=== PATIENT | male | born 1995 | race Caucasian/White ===

== ENCOUNTER 2017-10-02 09:06 | Emergency (ER) | payer OTHER ==
[~2017-10-02] VITALS: Ht 180.3 cm; Wt 109.6 kg
[~2017-10-02 09:06] MED LIST: EXFORGE 10/31 TABLET; FLEXERIL10 MG PO; NAPROSYN500 MG PO
[2017-10-02 09:46] LABS: HEMATOCRIT 45.8 % (38.0-50.0); HEMOGLOBIN 16.1 G/DL (12.5-16.6); MCH 30.3 PG (29.0-34.0); MCHC 35.2 G/DL (30.0-36.0); MCV 86.3 FL (86-99); PLATELET COUNT 281 K/uL (156-360); RBC DIS.WIDTH-CV 12.2 % (11.8-14.6); RBC DIS.WIDTH-SD 38.5 % (39-53); RED BLOOD COUNT 5.31 M/uL (4.00-5.50); WHITE BLOOD COUNT 10.1 K/uL (4.1-10.2)
[2017-10-02 09:54] LABS: ALBUMIN 4.4 g/dL (3.2-4.8)
[2017-10-02 09:55] LABS: CHLORIDE 106 mEq/L (99-109); SODIUM 137 mEq/L (136-147)
[2017-10-02 09:57] LABS: GLUCOSE 99 mg/dL (70-99); TOTAL PROTEIN 7.9 g/dL (6.4-8.3)
[2017-10-02 09:59] LABS: TOTAL BILIRUBIN 0.6 mg/dL (0.0-1.0)
[2017-10-02 10:00] LABS: ALKALINE PHOSPHATASE 84 IU/L (3-129); CREATININE 0.9 mg/dL (0.6-1.3); GFR ESTIMATE (CALCULATED) > 59 mL/min/ (58.99-99999)
[2017-10-02 10:02] LABS: AST (GOT) 24 IU/L (2-34); UREA NITROGEN (BUN) 12 mg/dL (9-23)
[2017-10-02 10:03] LABS: ALT (GPT) 50 IU/L (3-49)
[2017-10-02 10:07] LABS: TROP-I INTERPRETATION NEGATIVE; TROPONIN-I < 0.01 ng/mL (0.0-0.30)
[2017-10-02] MEDS ORDERED: BENTYL10 MG PO (11:40)
[2017-10-02] MEDS ORDERED: ZOFRAN4 MG PO (11:40)
[2017-10-02 13:13] LABS: TROP-I INTERPRETATION NEGATIVE; TROPONIN-I < 0.01 ng/mL (0.0-0.30)
[2017-10-02 13:31] VITALS: BP 134/71
== END 2017-10-02 13:32 | disposition home or self-care (01) ==
LOC: EME 09:06
PROVIDERS: Nurse Practitioner Family
DX: R10.13 Epigastric pain (principal); R11.2 Nausea with vomiting, unspecified; K21.9 Gastro-esophageal reflux disease without esophagitis; I10 Essential (primary) hypertension; F12.90 Cannabis use, unspecified, uncomplicated; F17.200 Nicotine dependence, unspecified, uncomplicated
CPT/HCPCS: 74177; 80053; 84484; 85027; 93005; 99281; 99285; J2405; J7030

== ENCOUNTER → 2017-11-07 | Outpatient (CLI) | payer OTHER ==
[~2017-11-07] VITALS: Ht 180.3 cm; Wt 108.9 kg
[~2017-11-07] MED LIST changes: +BENTYL10 MG PO; +OMEPRAZOLE40 M1 PO; +ZOFRAN4 MG PO
== END | disposition home or self-care (01) ==
LOC: AMB 08:10
PROC: 0DB68ZX Excision of Stomach, Via Natural or Artificial Opening Endoscopic, Diagnostic (ICD-10-PCS; principal; 2017-11-07)
DX: K29.70 Gastritis, unspecified, without bleeding (principal); E78.5 Hyperlipidemia, unspecified; I10 Essential (primary) hypertension; Z82.49 Family history of ischemic heart disease and other diseases of the circulatory system; F17.200 Nicotine dependence, unspecified, uncomplicated
CPT/HCPCS: 88305; 88342 TC; J2250